=== PATIENT | female | born 1995 | race Caucasian/White ===

== ENCOUNTER 2018-01-21 16:20 | Outpatient (REF) | payer BC, SELFPAY | END 2018-01-21 16:40 | LOC: LBN 16:20 | PROVIDERS: PCP Pediatrics; Visit Provider Obstetrics & Gynecology Gynecology | DX: N90.89 Other specified noninflammatory disorders of vulva and perineum (principal) | CPT/HCPCS: 87529 ==

== ENCOUNTER 2018-12-11 14:18 | Outpatient (REF) | payer BC, SELFPAY ==
--- NOTE | 2018-12-11 14:00 | PAPFT_PTH ---
PATIENT: Comfort Tovar LOC: [facility] U#:[id number] AGE/SX: 22/F ROOM: RE12/11/[address]: Sandy Wilkerson : 1995 BED: DIS: 12/11/2018 SPEC #: [id number] RECD: 12/11/18 18:07 STATUS: DAYSI CABAN #: [id number] FELISHA: 12/11/18 14:[address]: Sandy Wilkerson DEPT: [facility] Cytology RECD BY: Lucero Groves ENTERED: 12/11/18 18:07 SP TYPE: PAPFT RADHA DR: MARY Mooney Tissues: 1 - CX/ENDOCX FOR PAP SMEARS Procedures: PAP THIN PREP/[facility] Screening Comments: [id number]
== END 2018-12-11 14:38 ==
LOC: LBN 14:18
PROVIDERS: PCP Nurse Practitioner Family; Visit Provider Obstetrics & Gynecology Gynecology
DX: Z12.4 Encounter for screening for malignant neoplasm of cervix (principal)
CPT/HCPCS: 88142

== ENCOUNTER 2018-12-11 15:22 | Outpatient (REF) | payer BC, SELFPAY ==
[2018-12-12 14:51] LABS: Chlamydia Result Negative; GC Result Negative; Specimen Description CERVIX
== END 2018-12-11 15:42 ==
LOC: LBN 15:22
PROVIDERS: PCP Nurse Practitioner Family; Visit Provider Obstetrics & Gynecology Gynecology
DX: Z11.3 Encounter for screening for infections with a predominantly sexual mode of transmission (principal)
CPT/HCPCS: 87491; 87591

== ENCOUNTER 2019-05-15 10:20 | Outpatient (CLI) | payer BC, SELFPAY ==
[2019-05-15 12:48] LABS: Anion Gap 8.8 mmol/L (3-11); BUN 13 mg/dL (7-18); CO2 27.2 mmol/L (21.0-32.0); CREATININE 0.84 mg/dL (0.55-1.02); Calcium 9.4 mg/dL (8.5-10.1); Calculated LDL 159 mg/dL; Chloride 104 mmol/L (98-107); Cholesterol 232 mg/dL (<200); Glucose 86 mg/dL (74-106); HDL Cholesterol 55 mg/dL (40-60); Potassium 4.1 mmol/L (3.5-5.1); Sodium 140 mmol/L (136-145); Triglyceride 94 mg/dL (<150)
== END 2019-05-15 10:40 ==
PROVIDERS: PCP Nurse Practitioner Family; Visit Provider Nurse Practitioner Family
DX: Z00.00 Encounter for general adult medical examination without abnormal findings (principal); Z13.220 Encounter for screening for lipoid disorders; Z13.228 Encounter for screening for other metabolic disorders
CPT/HCPCS: 36415; 80048; 80061

== ENCOUNTER 2020-05-23 11:22 | Outpatient (CLI) | payer BC, SELFPAY ==
[2020-05-24 15:08] LABS: COVID-19 RT-PCR UVMMC Result Negative (Negative)
== END 2020-05-23 11:42 ==
PROVIDERS: PCP Nurse Practitioner Family; Visit Provider Nurse Practitioner Family
DX: Z11.52 Encounter for screening for COVID-19 (principal)
CPT/HCPCS: U0003

== ENCOUNTER 2023-01-14 08:54 | Outpatient (REF) | payer OTHER, SELFPAY ==
--- NOTE | 2023-01-14 08:25 | PAPFT_PTH ---
PATIENT: Comfort Tovar LOC: [facility] U#:[id number] AGE/SX: 27/F ROOM: RE01/14/[address]: Cecilia Vasquez NP : 1995 BED: DIS: 01/14/2023 SPEC #: [id number] RECD: 01/14/23 18:02 STATUS: DAYSI REScarlet #: [id number] FELISHA: 01/14/23 08:[address]: Christina MATTHEWS,Cecilia DEPT: [facility] Cytology RECD BY: Lucero Groves ENTERED: 01/14/23 18:02 SP TYPE: PAPFT OTHR DR: MARY Mooney Tissues: 1 - CX/ENDOCX FOR PAP SMEARS Procedures: PAP THIN PREP/[facility] Screening Comments: [id number] (CHLAMYDIA/GC)
[2023-01-15 15:50] LABS: Chlamydia Result Negative (Negative); GC Result Negative (Negative)
== END 2023-01-14 08:55 | disposition home or self-care (01) ==
LOC: LBN 08:54
PROVIDERS: PCP Nurse Practitioner Family; Visit Provider Nurse Practitioner Women's Health
DX: Z11.3 Encounter for screening for infections with a predominantly sexual mode of transmission (principal); Z12.4 Encounter for screening for malignant neoplasm of cervix
CPT/HCPCS: 87491; 87591; 88142

== ENCOUNTER 2023-04-08 10:45 | Outpatient (REF) | payer OTHER, SELFPAY ==
[2023-04-09 14:36] LABS: Chlamydia Result Negative (Negative); GC Result Negative (Negative)
== END 2023-04-08 10:46 | disposition home or self-care (01) ==
LOC: LBN 10:45
PROVIDERS: PCP Nurse Practitioner Family; Visit Provider Obstetrics & Gynecology
DX: Z11.3 Encounter for screening for infections with a predominantly sexual mode of transmission (principal)
CPT/HCPCS: 87491; 87591

== ENCOUNTER 2023-07-22 11:08 | Outpatient (REF) | payer OTHER, SELFPAY ==
--- NOTE | 2023-07-22 10:45 | SKI_PTH ---
PATIENT: Comfort Tovar LOC: [facility] U#:[id number] AGE/SX: 27/F ROOM: RE07/22/[address]: Kyle Parrish MD : 1995 BED: DIS: 07/22/2023 SPEC #: [id number] RECD: 07/22/23 18:16 STATUS: DAYSI CABAN #: [id number] FELISHA: 07/22/23 10:[address]: Kyle Parrish DEPT: Surgical Specimen RECD BY: Lucero Groves ENTERED: 07/22/23 18:18 SP TYPE: TONNY GARCIA DR: MARY Mooney Tissues: 1 - SKIN BIOPSY(SHAVE/PUNCH) Procedures: SKIN LEVEL 4 Comments: [id number]
== END 2023-07-22 11:09 | disposition home or self-care (01) ==
LOC: LBN 11:08
PROVIDERS: PCP Nurse Practitioner Family; Visit Provider Otolaryngology
DX: L98.9 Disorder of the skin and subcutaneous tissue, unspecified (principal)
CPT/HCPCS: 88305

== ENCOUNTER 2025-03-15 09:33 | Outpatient (CLI) | payer OTHER, SELFPAY ==
[2025-03-15 14:10] LABS: HCT 39.2 % (36.0-46.0); HGB 13.5 g/dL (11.2-15.7); MCH 28.6 pg (27.0-33.0); MCHC 34.4 % (32.0-36.0); MCV 83 fL (80-95); MPV 9.9 fL (8.0-11.0); Platelet Count 246 10^3/uL (130-400); RBC 4.72 10^6/uL (3.93-5.22); RDW 11.5 % (11.7-14.6); RDW-SD 34.6 fL; WBC 10.35 10^3/uL (4.4-10.8)
[2025-03-15 16:16] LABS: TSH (W/Ref FT4) 1.47 uIU/mL (0.55-4.78)
[2025-03-15 16:25] LABS: ALT 18 U/L (10-49); AST 19 U/L (<34); Albumin 4.8 g/dL (3.4-5.0); Alkaline Phosphatase 57 U/L (46-116); Anion Gap 9.5 mmol/L (3-11); BUN 11 mg/dL (9-23); Bilirubin, Total 1.70 mg/dL (0.2-1.2); CO2 23.5 mmol/L (20.0-31.0); Calcium 9.6 mg/dL (8.3-10.6); Chloride 107 mmol/L (98-107); Cholesterol 179 mg/dL (<200); Glucose 84 mg/dL (74-106); HDL Cholesterol 55 mg/dL (>40); Potassium 3.7 mmol/L (3.5-5.1); Sodium 140 mmol/L (136-145); Total Protein 7.8 g/dL (5.7-8.2)
[2025-03-15 17:07] LABS: Hemoglobin A1C 5.0 % (<5.7)
[2025-03-15 23:39] LABS: Hepatitis C Ab w Rflx HCV PCR Negative (Negative)
[2025-03-15 23:42] LABS: HBs Antibody, Quant 5.9 mIU/mL (See Note); Hepatitis B Surface Antigen Negative (Negative)
[2025-03-15 23:53] LABS: HIV-1/2 Ag & Ab Screen Negative (Negative)
== END 2025-03-15 09:34 | disposition home or self-care (01) ==
LOC: LBO 09:34
PROVIDERS: PCP Nurse Practitioner Family; Visit Provider Nurse Practitioner Family
DX: Z11.59 Encounter for screening for other viral diseases (principal); Z00.00 Encounter for general adult medical examination without abnormal findings; Z11.4 Encounter for screening for human immunodeficiency virus [HIV]
CPT/HCPCS: 36415; 80053; 80061; 85027; 86704; 86706; 86803; 87340; 87389; 83036; 84443